=== PATIENT | female | born 1945 | race Caucasian/White ===

== ENCOUNTER → 2017-07-19 | Outpatient (CLI) | payer OTHER ==
[~2017-07-19] MED LIST: ACET-1256 PO; ATV1 PO; BLACK CHERRY PO; CALC-51 PO; CHOL2000 PO; CRAN1CAP2 PO; LORA10TA44 PO; MULTTAB58 PO; NAPR1CAP12 PO; OMEG120013 PO; RXC5 PO; VITA400C28 PO
--- NOTE | 2017-07-19 15:43 | DIAGNOSTIC IMAGING REPORT ---
LUMBAR SPINE CT CT DOSE: 1306.26 mGy.cm HISTORY: LOW BACK PAIN TECHNIQUE: Multiaxial CT images of the lumbar spine were performed and reformatted in the sagittal and coronal plane without the use of contrast. A dose lowering technique was utilized adhering to the principles of ALARA. COMPARISON: None. FINDINGS: Posterior decompression and fusion at L4-L5 with pedicle screws and rods. The hardware appears intact. There is no significant periprosthetic lucency. Severe disc space narrowing with endplate irregularity and sclerosis as well as a small amount of vacuum phenomenon at L3-L4 and L5-S1. This is likely due to long-standing degenerative change. There is 5 mm of anterolisthesis of L4 and L5. No fractures within the lumbar spine. Paraspinal soft tissues are unremarkable. Small broad-based posterior disc bulge at L2-L3. Mild central canal narrowing at L3-L4 due to the broad-based posterior disc bulge and facet hypertrophy. IMPRESSION: 1. No fractures within the lumbar spine. 2. Prior L4-5 posterior decompression and fusion. The hardware appears intact. 3. Severe disc space narrowing at L3-L4 and L5-S1. There is mild central canal narrowing at L3-L4 due to the broad-based posterior disc bulge and facet hypertrophy. Electronically signed by: Efra Packer M.D. 07/19/2017 3:41 PM Dictated Date/Time: 07/19/2017 3:33 PM
== END | disposition home or self-care (01) ==
LOC: C.CTS 15:02
PROVIDERS: ATTEND Physician Assistant
DX: M51.37 Other intervertebral disc degeneration, lumbosacral region (principal); M48.061 Spinal stenosis, lumbar region without neurogenic claudication; M51.26 Other intervertebral disc displacement, lumbar region; Z98.1 Arthrodesis status

== ENCOUNTER 2017-12-25 05:45 | Inpatient (IN) | payer OTHER ==
[2017-12-13 15:14] VITALS: BMI 31.0
--- NOTE | 2017-12-20 10:33 | DIAGNOSTIC IMAGING REPORT ---
SINGLE VIEW CHEST CLINICAL HISTORY: Preoperative examination FINDINGS: An AP, portable, upright chest radiograph is compared to study dated 09/29/2015. The cardiomediastinal silhouette is unremarkable. Chronic interstitial thickening is similar to previous. The lungs and pleural spaces are clear. No pneumothorax is seen. The skeletal structures are osteopenic. Arthritic change is noted in the shoulders. Postoperative change is seen in the left upper quadrant. Electronic device projects over the chest. IMPRESSION: No active disease in the chest. Electronically signed by: Raj Lynn M.D. 12/20/2017 10:31 AM Dictated Date/Time: 12/20/2017 10:30 AM
[2017-12-20 12:28] LABS: BASO % 0.4 %; BASO ABS # 0.02 K/uL (0-0.2); EOS ABS # 0.05 K/uL (0-0.5); HEMATOCRIT 40.4 % (37-47); HEMOGLOBIN 13.3 g/dL (12.0-16.0); IG# 0.01 K/uL (0.00-0.02); LYMPH % 24.6 %; LYMPH ABS # 1.22 K/uL (1.2-3.4); MEAN CELL VOLUME 88.4 fL (80-100); MEAN CORPUSCULAR HEMOGLOBIN 29.1 pg (25-34); MEAN CORPUSCULAR HGB CONC 32.9 g/dl (32-36); MEAN PLATELET VOLUME 8.1 fL (7.4-10.4); NEUT % 67.8 %; NEUT ABS # 3.36 K/uL (1.4-6.5); PLATELET COUNT 266 K/uL (130-400); RED CELL DISTRIBUTION WIDTH CV 13.2 % (11.5-14.5); RED CELL DISTRIBUTION WIDTH SD 41.5 fL (36.4-46.3); WHITE BLOOD COUNT 4.96 K/uL (4.8-10.8)
[2017-12-20 12:40] LABS: PTT PATIENT 27.6 SECONDS (21.0-31.0)
--- NOTE | 2017-12-20 13:56 | HISTORY & PHYSICAL EXAMINATION ---
DATE OF ADMISSION: 12/25/2017 CHIEF COMPLAINT: Right knee pain. HISTORY OF PRESENT ILLNESS: Ms. Gomez is a 71-year-old female with a 1-year history of right knee pain. The patient rates her pain an 8/10. She has pain with her daily activities. She has limited standing and walking tolerance. Pain is worse with weightbearing. The patient has had injections and Tylenol. She has also participated in the walking program without relief. She has failed conservative treatment and is scheduled for right knee replacement with Dr. Gomez. PAST MEDICAL HISTORY: AFib and history of phlebitis. She denies heart disease, diabetes or DVT. PAST SURGICAL HISTORY: Loop recorder insertion, right TKA, and liver lesion excision. SOCIAL HISTORY: The patient rarely drinks alcohol. She denies tobacco use. She lives in a 2-story home. She is and retired. FAMILY HISTORY: Negative for DVT. MEDICATIONS: Allergy relief 10 mg daily, fish oil, calcium carbonate, vitamin D3 2000 units, multivitamin, and Xarelto 20 mg. ALLERGIES: ADHESIVE. REVIEW OF SYSTEMS: See HPI. Ten other systems reviewed, all negative. PHYSICAL EXAMINATION: VITAL SIGNS: Height 5 feet 6 inches, weight 198 pounds, BMI 32. GENERAL: This is a well-developed, well-nourished female who is alert and oriented x3. Mood and affect are appropriate. HEENT: Normocephalic, atraumatic. Mucous membranes are moist and intact. NECK: Supple without lymphadenopathy. HEART: Regular rate and rhythm without murmurs, rubs or gallops. LUNGS: Clear to auscultation without wheezes or rhonchi. ABDOMEN: Soft and nontender. Bowel sounds are equal and active. EXTREMITIES: No ecchymosis, redness or warmth. She has moderate varicosities. She has no distal edema. She has neutral alignment. Range of motion is from 0-115 degrees with +1 medial laxity. She is neurovascularly intact with +5/5 strength. X-RAY EXAMINATION: AP and lateral views show joint space narrowing and osteophyte formation. IMPRESSION: Degenerative joint disease, right knee. PLAN: The patient will be admitted for a right total knee arthroplasty. We will plan on resuming her to Xarelto for DVT prophylaxis postoperatively. The patient is planning to do outpatient PT upon discharge.
[2017-12-21 05:54] LABS: HEMOGLOBIN A1C 5.2 % (4.5-5.6)
[2017-12-25] VITALS (9 sets, daily range): BP systolic 112–147; BP diastolic 64–92; PULSE 70–87; TEMP 36.2–37; O2SAT 94–100; Ht 167.6 cm; Wt 88.6 kg
[~2017-12-25] VITALS: Ht 167.6 cm; Wt 88.6 kg
[~2017-12-25 05:45] MED LIST changes: -ATV1 PO; -BLACK CHERRY PO; +LORA10CA10 PO; -LORA10TA44 PO; -NAPR1CAP12 PO; +RIVA1TAB4 PO; -RXC5 PO
[2017-12-25] MEDS ORDERED: CEFAZOLIN 2000MG IV PUSH 15 ML IV SCH (06:00)
[2017-12-25] MEDS ORDERED: FAMOTIDINE 20 MG TAB PO SCH (06:00)
[2017-12-25] MEDS ORDERED: GABAPENTIN 300 MG CAP PO SCH (06:00)
[2017-12-25] MEDS ORDERED: LACTATED RINGER'S 1000ML 1,000 ML IV SCH (06:00)
[2017-12-25] MEDS ORDERED: LACTATED RINGER'S 1000ML 500 ML IV SCH (06:00)
[2017-12-25] MEDS ORDERED: DEXAMETHASONE 4 MG TAB PO SCH (06:00)
[2017-12-25] MEDS ORDERED: CeleBREX 200 MG CAP PO SCH (06:00)
[2017-12-25] MEDS ORDERED: METOCLOPRAMIDE HCL 10 MG TAB PO SCH (06:00)
[2017-12-25] MEDS ORDERED: ACETAMINOPHEN 500 MG TAB PO SCH (06:00)
[2017-12-25] MEDS ORDERED: ROPIVACAINE 5MG/ML 30 ML 150 MG, BUPIVACAINE 0.5% MPF INJ 30 ML, EpINEphrine HCL INJ 0.... INFIL SCH ×8 (06:00)
[2017-12-25] MEDS ORDERED: ROPIVACAINE 0.5% 5 MG/ML 30 ML VIAL ONE (06:26)
[2017-12-25] MEDS ORDERED: BUPIVACAINE 0.5 % 5 MG/1 ML PF 10ML VIAL ONE (06:27)
[2017-12-25 06:29] LABS: CALCIUM 8.7 mg/dl (8.5-10.1); CREATININE 0.75 mg/dl (0.60-1.20); POTASSIUM 3.7 mmol/L (3.5-5.1)
[2017-12-25] MEDS: TRANEXAMIC ACID INJ 1,000 MG x 2 Bags IV SCH ×4 (06:30→07:42)
[2017-12-25] MEDS ORDERED: ORTHO JOINT ANESTHETIC ONE (06:56)
[2017-12-25] MEDS ORDERED: BACITRACIN 50000 UNIT VIAL ONE (06:57)
[2017-12-25] MEDS ORDERED: POVIDONE-IODINE OP SOLN 30 ML BTL ONE (06:57)
--- NOTE | 2017-12-25 06:59 | History & Physical Bridge Note ---
H&P Re-Evaluation Bridge Note: I have examined the patient, reviewed the History & Physical and in the interval since the performance of the History & Physical I have noted the following changes of clinical significance: No changes noted
[2017-12-25] MEDS ORDERED: EpHEDrine SULFATE 50MG/5ML SYR ONE (07:01)
[2017-12-25] MEDS ORDERED: FENTANYL CITRATE INJ 50 MCG/1 ML 2 ML VIAL ONE (07:01)
[2017-12-25] MEDS ORDERED: LIDOCAINE HCL 2% 2 ML VIAL (20MG/ML) ONE (07:01)
[2017-12-25] MEDS ORDERED: MIDAZOLAM HCL 1 MG/ML 2ML VIAL ONE (07:01)
[2017-12-25] MEDS ORDERED: ONDANSETRON INJ 2 MG/ML 2 ML VIAL ONE (07:01)
[2017-12-25] MEDS ORDERED: PROPOFOL IV EMULSION 10 MG/ML 20 ML VIAL IV ONE (07:01)
[2017-12-25] MEDS ORDERED: PHENYLEPHRINE 100MCG/ML 5ML SYR ONE (07:01)
[2017-12-25] MEDS ORDERED: LABETALOL HCL IV 5 MG/ML 20ML IV PRN (08:45)
[2017-12-25] MEDS ORDERED: EpHEDrine SULFATE INJ 50 MG/ML AMP IV PRN (08:45)
[2017-12-25] MEDS ORDERED: ONDANSETRON INJ 2 MG/ML 2 ML VIAL IV PRN ×2 (08:45→09:45)
[2017-12-25] MEDS ORDERED: ATROPINE SULFATE 0.1 MG/ML 5ML SYR IV PRN (08:45)
[2017-12-25] MEDS ORDERED: FENTANYL CITRATE INJ 50 MCG/1 ML 2 ML VIAL IV PRN (08:45)
[2017-12-25] MEDS ORDERED: HYDROmorphone INJ 0.5 MG/0.5 ML SYR IV PRN (08:45)
[2017-12-25] MEDS ORDERED: MEPERIDINE HCL 25 MG/ML CARP IV PRN (08:45)
--- NOTE | 2017-12-25 09:05 | [facility] Post Operative Brief Note ---
Immediate Operative Summary Operative Date Dec 25, 2017. Pre-Operative Diagnosis Right knee degenerative joint disease Post-Operative Diagnosis Right knee degenerative joint disease Procedure(s) Performed Right total knee arthroplasty,cemented Surgeon Dr. Gomez Sql Application Developer Surgeon(s) Vini Jon PA-C Estimated Blood Loss 5 cc Findings Consistent with Post-Op Diagnosis Specimens A: Right knee bone and tissue Anesthesia Type MAC Spinal Regional Complication(s) none Disposition Disposition: Recovery Room / PACU
--- NOTE | 2017-12-25 09:06 | [facility] Operative Report ---
Operative Report Operative Date Dec 25, 2017. Pre-Operative Diagnosis Right knee degenerative joint disease Post-Operative Diagnosis Right knee degenerative joint disease Procedure(s) Performed Right total knee arthroplasty,cemented utilizing Rod nephAdhereTx journey to non-block total knee arthroplasty size 5 femur 5 tibia 10 polyethylene 30 two-point oval patella Surgeon Dr. Gomez Director [employer] Surgeon(s) Vini Jon PA-C Estimated Blood Loss 5 cc Findings Patient presents with severe end-stage tricompartmental degenerative joint disease no response to conservative therapy including injections anti- inflammatories relative rest activity modifications at the time surgery is noted to have evidence of subchondral sclerotic changes marginal osteophytes bone the bone changes with exposed eburnated bone Specimens A: Right knee bone and tissue Anesthesia Type MAC Spinal Regional Complication(s) none Disposition Recovery Room / PACU Indications Patient presents with severe end-stage tricompartmental degenerative joint disease right knee unresponsive to conservative therapy presents for right total knee arthroplasty Description of Procedure After proper prepping and draping of the Right lower extremity anterior midline incision was made over the region of the extensor extensor mechanism after meticulous hemostasis was obtained and maintained in subcutaneous tissues a medial parapatellar incision was made The patella was subluxed lateralward the medial lateral gutter were cleaned from any hypertrophic synovitis and scar tissue of the distal femoral block was placed and the distal femoral osteotomy cut was made subsequently the chamfers anterior and posterior osteotomy cuts were made utilizing the 4-in-1 block the tibia was subsequently subluxed anteriorward medial and ateral meniscal remnants were excised in their entirety remnants of the anterior and posterior cruciate ligaments were excised in their entirety excellent exposure of the proximal tibia was obtained the tibial osteotomy guide was placed on the proximal tibial osteotomy cut was made once again the knee was irrigated with copious amounts of sterile saline solution the patella was subsequently everted lateralward thickened scar tissue around the patella was removed the patella was subsequently cut utilizing a freehand technique and was drilled prepared for final preparation and placement of patella socially flexion-extension gaps were checked and the equal and symmetric trials were placed to the appropriate femoral and tibial trials with poly-spacer being placed for equal flexion and extension gaps and full range of motion including extension to 0 and flexion to 140 the trial components after having been taken to recovery range of motion was subsequently removed meticulous hemostasis was obtained and maintained subsequently a knee block injection of joint cocktail including ropivacaine 0.5% 150 mg. Bupivacaine 0.5 % epinephrine 1-200,030 mL's toradol 30 mg dexamethasone 4 mg ketamine 10 mg clonidine 100 micrograms normal saline solution 30 mg was infiltrated into the soft tissues of the posterior knee medial lateral gutters and periosteal synovium special attention was paid to protect neurovascular structures at all times subsequently trial components having been removed the knee was irrigated with sterile saline solution. debris was removed the proximal tibia was subsequently prepared and was made ready for the placement of the tibial component tibial component was also cemented and tamped into position the femoral component was subsequently placed and cemented in the position the patellar component was subsequently cemented in position because hemostasis once again obtained and maintained wound having been thoroughly irrigated with debridement and debridement lavage was performed as well as a medial parapatellar incision closed with #1 Vicryl in interrupted fashion subcutaneous was closed with #2 Vicryl skin was closed with skin clips. PA-C was necessary for prepping and drapping as well as wound closure of deep fascia Sub cutaneous tissue and skin and was necessary for the case. A sterile compressive dressing was placed patient was taken to recovery in stable condition of report dictated by Jason I attest to the content of the Intraoperative Record and any orders documented therein. Any exceptions are noted below. I attest to the content of the Intraoperative Record and any orders documented therein. Any exceptions are noted below.
[2017-12-25] MEDS ORDERED: MoRPHine SULFATE 2 MG/ML CARP IV PRN (09:45)
[2017-12-25] MEDS ORDERED: TRAMADOL HCL 50 MG TAB PO PRN (09:45)
[2017-12-25] MEDS ORDERED: MAGNESIUM HYDROXIDE SUSP 30 ML UDC PO PRN (09:45)
[2017-12-25] MEDS ORDERED: BISACODYL 10 MG SUPP PR PRN (09:45)
[2017-12-25] MEDS ORDERED: ALUMINUM/MAGNESIUM/SIMETH (MAALOX MAX) 30 ML UDC PO PRN (09:45)
--- NOTE | 2017-12-25 10:18 | DIAGNOSTIC IMAGING REPORT ---
RIGHT KNEE 2 VIEWS History: Right total knee arthroplasty. Degenerative arthritis. Postop. FINDINGS: The patient is status post a right total knee arthroplasty. The hardware is intact. No fracture or dislocation. Skin ashley and surgical drains are in place. IMPRESSION: Right total knee arthroplasty. No evidence for hardware complication. Electronically signed by: Efra Packer M.D. 12/25/2017 10:17 AM Dictated Date/Time: 12/25/2017 10:17 AM
[2017-12-25] MEDS: D5W AND 1/2NSS + 20MEQ KCL 1,000 ML IV SCH ×2 (11:34→21:29)
--- NOTE | 2017-12-25 11:44 | Anesthesiology Progress Note ---
Anesthesia Post Op Note Date & Time Dec 25, 2017 at 11:43 Vital Signs Pain Intensity: 0.0 Vital Signs Past 12 Hours Date Time Temp Pulse Resp B/P (MAP) Pulse Ox O2 Delivery O2 Flow Rate FiO2 12/25/17 11:12 36.5 71 18 126/84 (98) 100 Nasal Cannula 2.0 12/25/17 10:45 Nasal Cannula 2.0 12/25/17 10:45 100 Nasal Cannula 2.0 12/25/17 10:45 36.4 70 16 132/90 (104) 100 Nasal Cannula 2.0 12/25/17 10:30 70 19 129/77 100 Nasal Cannula 2 12/25/17 10:20 36.6 70 16 133/71 100 Oxymask 2 12/25/17 10:10 72 19 135/80 100 Oxymask 2 12/25/17 10:00 68 19 139/72 100 Oxymask 2 12/25/17 09:50 72 17 133/71 100 Oxymask 6 12/25/17 09:40 36.8 78 23 127/66 100 Oxymask 10 12/25/17 06:05 36.4 81 20 147/84 98 Room Air Notes Mental Status: alert / awake / arousable, participated in evaluation Pt Amnestic to Procedure: Yes Nausea / Vomiting: adequately controlled Pain: adequately controlled Airway Patency, RR, SpO2: stable & adequate BP & HR: stable & adequate Hydration State: stable & adequate Neuraxial Anesthesia: was administered, sensory block is resolving Anesthetic Complications: no major complications apparent
[2017-12-25] MEDS: FERROUS GLUCONATE 324 MG TAB PO SCH ×2 (12:34→17:47)
[2017-12-25] MEDS: ACETAMINOPHEN 500 MG TAB PO SCH ×2 (13:36→21:31)
[2017-12-25] MEDS: CEFAZOLIN IV 2,000 MG in SYRINGE 0 ML IV SCH (16:12)
[2017-12-25] MEDS: CeleBREX 200 MG CAP PO SCH (20:45)
[2017-12-25] MEDS: DOCUSATE SODIUM 100 MG CAP PO SCH (20:45)
[2017-12-25] MEDS: SENNA 8.6 MG TAB PO SCH (20:45)
[2017-12-26] MEDS: CEFAZOLIN IV 2,000 MG in SYRINGE 0 ML IV SCH (00:20)
[2017-12-26 03:00] VITALS: BP 126/75; PULSE 86; TEMP 36.6; O2SAT 97
[2017-12-26] MEDS: ACETAMINOPHEN 500 MG TAB PO SCH ×3 (05:45→22:04)
[2017-12-26] MEDS: D5W AND 1/2NSS + 20MEQ KCL 1,000 ML IV SCH (05:46)
[2017-12-26] MEDS ORDERED: BACITRACIN 50000 UNIT VIAL ONE (06:48)
[2017-12-26] MEDS ORDERED: POVIDONE-IODINE OP SOLN 30 ML BTL ONE (06:48)
[2017-12-26 06:53] LABS: HEMATOCRIT 32.3 % (37-47); HEMOGLOBIN 10.9 g/dL (12.0-16.0); MEAN CELL VOLUME 87.5 fL (80-100); MEAN CORPUSCULAR HEMOGLOBIN 29.5 pg (25-34); MEAN CORPUSCULAR HGB CONC 33.7 g/dl (32-36); PLATELET COUNT 191 K/uL (130-400); RED CELL DISTRIBUTION WIDTH CV 13.5 % (11.5-14.5); RED CELL DISTRIBUTION WIDTH SD 42.8 fL (36.4-46.3); WHITE BLOOD COUNT 9.54 K/uL (4.8-10.8)
[2017-12-26 07:00] VITALS: BP 121/69; PULSE 67; TEMP 36.6; O2SAT 99
[2017-12-26 07:28] LABS: CALCIUM 8.4 mg/dl (8.5-10.1); CREATININE 0.76 mg/dl (0.60-1.20); POTASSIUM 4.4 mmol/L (3.5-5.1)
[2017-12-26] MEDS: CeleBREX 200 MG CAP PO SCH ×2 (08:32→20:53)
[2017-12-26] MEDS: CHOLECALCIFEROL 1000 INTER.UNIT TAB PO SCH (08:32)
[2017-12-26] MEDS: MULTIVITAMIN TAB PO SCH (08:32)
[2017-12-26] MEDS: LORATADINE 10 MG TAB PO SCH (08:32)
[2017-12-26] MEDS: FERROUS GLUCONATE 324 MG TAB PO SCH ×3 (08:32→18:06)
[2017-12-26] MEDS: DOCUSATE SODIUM 100 MG CAP PO SCH ×2 (08:32→20:53)
[2017-12-26] MEDS ORDERED: LORATADINE 10 MG TAB PO SCH (09:00)
[2017-12-26] MEDS ORDERED: MULTIVITAMIN TAB PO SCH (09:00)
--- NOTE | 2017-12-26 09:03 | Orthopedic Progress Note ---
Orthopedic Progress Note Date of Service Dec 26, 2017. Subjective Post OP Day: 1 (Right total knee arthroplasty) Reports: feeling well, pain controlled w PO medications, Denies: complaints, chest pain, SOB, nausea / vomiting, light headedness, calf pain Objective calves soft nontender, N/V intact, capillary refill less than 2 sec., dressing C /D/I, A&O x3, toes mobile, hemovac drainage (375cc/ 8 hour) Date Time Temp Pulse Resp B/P (MAP) Pulse Ox O2 Delivery O2 Flow Rate FiO2 12/26/17 07:15 Room Air 12/26/17 07:00 36.6 67 18 121/69 (86) 99 Room Air 12/26/17 03:00 36.6 86 16 126/75 (92) 97 Room Air 12/25/17 23:45 Room Air 12/25/17 23:06 36.7 77 17 112/68 (83) 97 Room Air 12/25/17 20:04 36.3 87 17 130/73 (92) 95 Room Air 12/25/17 16:00 Room Air 12/25/17 15:36 37.0 79 17 119/64 (82) 94 Room Air 12/25/17 13:44 36.2 80 16 128/76 (93) 96 Room Air 12/25/17 13:18 87 18 134/92 (106) 99 Nasal Cannula 2.0 12/25/17 11:51 70 18 122/71 (88) 100 Nasal Cannula 2.0 12/25/17 11:12 36.5 71 18 126/84 (98) 100 Nasal Cannula 2.0 12/25/17 10:45 Nasal Cannula 2.0 12/25/17 10:45 100 Nasal Cannula 2.0 12/25/17 10:45 36.4 70 16 132/90 (104) 100 Nasal Cannula 2.0 12/25/17 10:30 70 19 129/77 100 Nasal Cannula 2 12/25/17 10:20 36.6 70 16 133/71 100 Oxymask 2 12/25/17 10:10 72 19 135/80 100 Oxymask 2 12/25/17 10:00 68 19 139/72 100 Oxymask 2 12/25/17 09:50 72 17 133/71 100 Oxymask 6 12/25/17 09:40 36.8 78 23 127/66 100 Oxymask 10 Laboratory Results 24 Hours: Test 12/26/17 06:40 Hematocrit 32.3 % Hemoglobin 10.9 g/dL Assessment & Plan Assessment: POD #1 s/p Right total knee arthroplasty dvt proph with irene/scd/Xarelto plan for dc home with OPPT when stable, likely PT/OT Past Medical History AFib history of phlebitis Discharge Planning Discharge Planning: home with oppt DVT Prophylaxis: TEDs, SCDs, ASA
--- NOTE | 2017-12-26 09:07 | Discharge Instructions ---
Discharge Instructions Date of Service Dec 26, 2017. Admission Reason for Admission: Right Knee Osteoarthritis Discharge Discharge Diagnosis / Problem: right total knee replacement Discharge Goals Goal(s): Decrease discomfort, Improve function, Increase independence Activity Recommendations Activity Limitations: as noted below Weightbearing Status: Right weightbearing (as tolerated) . Instructions / Follow-Up Instructions / Follow-Up ACTIVITY RECOMMENDATIONS: SELF CARE INSTRUCTIONS AFTER TOTAL KNEE REPLACEMENT A. You may need to continue a physical therapy program after discharge from the hospital. There are several options available to you. Your doctor will assist you in selecting the best one for you. 1. An out-patient facility 2 to 3 times a week for therapy or home therapy. 2. Continue working on all exercises taught to you in the hospital. Your goals should be to increase bending of your knee to 90 degrees and beyond and to fully straighten your knee. B. You may progress at your own pace from walking with a walker or crutches to a cane; then to no assistive devices. C. Make walking a part of your daily routine. Be up as much as comfortable with rest periods throughout the day. Rest with leg elevation is very important. Use the ice wrap frequently for the first 3-4 weeks. D. There are no restrictions on activities. You may ride in a car, shop, participate in orthotic technician and all social activities. E. Wear the long elastic stockings (ANA hose) 20 hours a day for 2 weeks after surgery. They can be removed several times a day for laundering and for a bath. F. You may shower, no tub baths until cleared by your doctor. SPECIAL CARE INSTRUCTIONS: VERY IMPORTANT TO READ AND REVIEW A. There are a few signs you need to watch for after you are home. Call [facility] if you notice any of the followin. Increased severe knee pain. Some pain is expected especially when you exercise. 2. Increased swelling in your leg or knee; pain or swelling of the calf muscle in either lower leg. 3. Any fluid drainage from the incision. 4. Shortness of breath or chest pain. B. Please call [facility] at if you have any concerns or questions about your operation or recovery. The doctor or his nurse will return your call promptly. C. You must take antibiotics before dental work, bladder, bowel or other surgery. Your doctor will provide you with a permanent care to carry describing this precaution. IMPORTANT: * REMEMBER TO TAKE ASPIRIN, 81 MG, TWICE DAILY FOR 4 WEEKS UNLESS OTHERWISE DIRECTED. THIS IS YOUR BLOOD THINNER. * HIGH RISK PATIENTS MAY BE PRESCRIBED A STRONGER BLOOD THINNER. THIS WILL BE PROVIDED AT DISCHARGE. * CALL IF INCREASED PAIN, REDNESS, DRAINAGE OR FEVER GREATER THAT 101. * WEAR ANA HOSE 20 HOURS PER DAY FOR 2 WEEKS. * YOU MAY HAVE A LARGE BAND-AID LIKE DRESSING (SILVERON). THIS WILL REMAIN ON YOUR INCISION FOR 7 DAYS, THEN CAN BE REMOVED. IF INCISION IS LEAKING THROUGH DRESSING, CALL THE OFFICE . FOLLOW UP VISIT: If appointment is not already scheduled: Please call [facility] to make a follow-up appointment for 2 weeks after your surgery at . Current Hospital Diet Patient's current hospital diet: Regular Diet Discharge Diet Recommended Diet: Regular Diet Procedures Procedures Performed: Right total knee arthroplasty,cemented utilizing [employer] journey to non-block total knee arthroplasty size 5 femur 5 tibia 10 polyethylene 30 two-point oval patella Pending Studies Studies pending at discharge: no Laboratory Results Hemoglobin A1c Test 12/20/17 09:55 Range/Units Estimated Average Glucose 103 mg/dl Hemoglobin A1c 5.2 4.5-5.6 % Medical Emergencies . Who to Call and When: Medical Emergencies: If at any time you feel your situation is an emergency, please call 911 immediately. . Non-Emergent Contact Non-Emergency issues call your: Primary Care Provider, Surgeon . "Provider Documentation" section prepared by Vega Barber. . [place] Drug Monitoring Program Search Results: patient reviewed within database, no issues identified
[2017-12-26 11:01] VITALS: BP 117/72; PULSE 70; TEMP 37.2; O2SAT 100
[2017-12-26 15:10] VITALS: BP 123/74; PULSE 68; TEMP 36.5; O2SAT 99
[2017-12-26 16:00] VITALS: O2SAT 99
[2017-12-26] MEDS ORDERED: RIVAROXABAN 10 MG TAB PO SCH (17:15)
[2017-12-26] MEDS: OXYCODONE HCL IR 5 MG TAB (IMMEDIATE RELEASE) PO PRN (18:19)
[2017-12-26] MEDS: SENNA 8.6 MG TAB PO SCH (20:53)
[2017-12-26 23:15] VITALS: BP 111/70; PULSE 70; TEMP 36.3; O2SAT 98
[2017-12-27] MEDS: ACETAMINOPHEN 500 MG TAB PO SCH ×2 (06:15→13:29)
--- NOTE | 2017-12-27 06:57 | Orthopedic Progress Note ---
Orthopedic Progress Note Date of Service Dec 27, 2017. Subjective Post OP Day: 2 Reports: feeling well, pain controlled w PO medications, Denies: complaints, chest pain, SOB, nausea / vomiting, light headedness, calf pain Objective calves soft nontender, N/V intact, capillary refill less than 2 sec., dressing C /D/I, A&O x3, toes mobile Date Time Temp Pulse Resp B/P (MAP) Pulse Ox O2 Delivery O2 Flow Rate FiO2 12/26/17 23:45 Room Air 12/26/17 23:15 36.3 70 16 111/70 (84) 98 Room Air 12/26/17 16:00 99 Room Air 12/26/17 15:10 36.5 68 18 123/74 (90) 99 Room Air 12/26/17 11:01 37.2 70 18 117/72 (87) 100 Room Air 12/26/17 07:15 Room Air 12/26/17 07:00 36.6 67 18 121/69 (86) 99 Room Air Assessment & Plan Assessment: POD #2 s/p Right total knee arthroplasty dvt proph with irene/scd/Xarelto plan for dc home with OPPT when stable, after PT today PT/OT Past Medical History AFib history of phlebitis Discharge Planning Discharge Planning: home with oppt DVT Prophylaxis: TEDs, SCDs, ASA
[2017-12-27] MEDS ORDERED: CLC100 PO (06:59)
[2017-12-27] MEDS ORDERED: ACET-24 PO (06:59)
[2017-12-27] MEDS ORDERED: ONDA-170 PO (06:59)
[2017-12-27] MEDS ORDERED: CLB200 PO (06:59)
[2017-12-27] MEDS ORDERED: RXC5 PO (06:59)
[2017-12-27 07:11] VITALS: BP 112/74; PULSE 72; TEMP 36.4; O2SAT 97
[2017-12-27] MEDS: CHOLECALCIFEROL 1000 INTER.UNIT TAB PO SCH (08:18)
[2017-12-27] MEDS: CeleBREX 200 MG CAP PO SCH (08:18)
[2017-12-27] MEDS: LORATADINE 10 MG TAB PO SCH (08:19)
[2017-12-27] MEDS: MULTIVITAMIN TAB PO SCH (08:19)
[2017-12-27] MEDS: FERROUS GLUCONATE 324 MG TAB PO SCH ×2 (08:19→13:28)
[2017-12-27] MEDS: DOCUSATE SODIUM 100 MG CAP PO SCH (08:19)
[2017-12-27] MEDS: OXYCODONE HCL IR 5 MG TAB (IMMEDIATE RELEASE) PO PRN (08:23)
[2017-12-27 10:37] VITALS: TEMP 36.4
[2017-12-27 13:33] VITALS: BP 119/75; PULSE 77; O2SAT 97
== END 2017-12-27 14:45 | disposition home or self-care (01) | DRG 470 ==
LOC: C.ACU 05:45 → C.3E 06:45 → ENRESERV 10:22
PROVIDERS: ADMIT Orthopaedic Surgery; ATTEND Orthopaedic Surgery
PROC: 0SRC0J9 Replacement of Right Knee Joint with Synthetic Substitute, Cemented, Open Approach (ICD-10-PCS; principal; 2017-12-25 07:45)
DX: M17.11 Unilateral primary osteoarthritis, right knee (principal); I48.91 Unspecified atrial fibrillation; Z79.899 Other long term (current) drug therapy; Z79.01 Long term (current) use of anticoagulants; Z86.79 Personal history of other diseases of the circulatory system

== ENCOUNTER 2021-08-08 08:41 | Observation (INO) ==
--- NOTE | 2021-07-01 11:36 | PAT Medication Instructions ---
Medication Instructions Date of Service July 01, 2021 Home Medications anastrozole 1 mg tablet 1 mg PO QAM calcium 600 mg capsule 1,200 mg PO DAILY cranberry 500 mg capsule 500 mg PO DAILY loratadine 10 mg tablet (Claritin) 10 mg PO DAILY multivitamin 1 tab PO DAILY omega-3 fatty acids 1,000 mg PO DAILY rivaroxaban 20 mg tablet (Xarelto) 20 mg PO QAM 06/30/21 [History Confirmed 06/30/21] Continue as directed anastrozole 1 mg tablet 1 mg PO QAM (unless surgeon directed otherwise) ASK your prescriber and surgeon rivaroxaban 20 mg tablet (Xarelto) 20 mg PO QAM STOP taking 2 weeks before surgery omega-3 fatty acids 1,000 mg PO DAILY cranberry 500 mg capsule 500 mg PO DAILY DO NOT take the morning of surgery calcium 600 mg capsule 1,200 mg PO DAILY loratadine 10 mg tablet (Claritin) 10 mg PO DAILY multivitamin 1 tab PO DAILY OTHERWISE NOTHING TO EAT OR DRINK AFTER MIDNIGHT Other Notes If you have any questions please call us at [phone] or [phone] or [phone] or [phone]
--- NOTE | 2021-07-04 13:42 | Anesthesiology Consultation ---
Date of Service July 04, 2021 Assessment & Plan (1) Encounter for pre-operative examination: Chart Review Chart Review: Acceptable Risk for Surgery (pending PCP note if available and preop Covid testing results ) and Patient seen in Pre Admission Testing -Will attempt to obtain most recent PCP note (pt scheduled 07/05/21) Per PAT appt on 06/29/21, patient denies any recent travel or large group activities. No known Covid positive contacts or Covid related symptoms. No known Covid infection in the past 90 days. Pt is vaccinated for Covid.. Preop Covid testing recommended 07/14/21 = will await results. Educated on importance of self quarantining, social distancing and wearing mask in public for the patient one week prior to surgery and after Covid testing done Teaching & Discussion Pre-Anesthesia Teaching/Discussion Notes: Instructed NPO after midnight before surgery,except medications with 15 cc of water. Medication instructions provided according to the [facility] guidelines. History Surgery Operation Date: 07/18/21 11:35 Proposed Procedures p L2-L4 Decompression, L3-L4 Fusion, Possible L2-L4, Spinal Cord Monitoring - Reid Lee DO s L4-L5 Hardware Removal - Reid Lee DO Height/Weight Height: 5 ft 5.5 in Weight: 97.6 kg Allergies Allergy/AdvReac Type Severity Reaction Status Date / Time adhesive Allergy Mild RASH Verified 06/30/21 14:17 No Known Drug Allergies Allergy Unknown NONE Verified 06/30/21 14:17 Medications Home Medications Medication Instructions Recorded Confirmed Last Taken anastrozole 1 mg tablet 1 mg PO QAM 06/30/21 06/30/21 Unknown calcium 600 mg capsule 1,200 mg PO DAILY 06/30/21 06/30/21 Unknown cranberry 500 mg capsule 500 mg PO DAILY 06/30/21 06/30/21 Unknown loratadine 10 mg tablet (Claritin) 10 mg PO DAILY 06/30/21 06/30/21 Unknown multivitamin 1 tab PO DAILY 06/30/21 06/30/21 Unknown omega-3 fatty acids 1,000 mg PO DAILY 06/30/21 06/30/21 Unknown rivaroxaban 20 mg tablet (Xarelto) 20 mg PO QAM 06/30/21 06/30/21 Unknown Past Medical History Medical History Arthritis Degenerative disc disease History of atrial fibrillation S/p ablation On Xarelto - stable Follows only with PCP Hx of breast cancer RT (S/P LUMPECTOMY WITH RADIATION) 2019 Does have right UE arm restriction Exercise / Class Metabolic Activity III < 4 Walking/Shop/Light housework (one flight of stairs - minimal SOB, no chest pain) Past Family History Family History Other No family history of adverse response to anesthesia Past Surgical History Surgical History (Updated 07/04/21 @ 14:26 by Lore Vick PA-C) H/O cardiac radiofrequency ablation ? 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 Past Anesthesia History No Hx of Anesthesia Complications and No Family Hx of Anesthesia Complications History of PONV No Hx of PONV and No Hx of Motion Sickness Social History Smoking Status: Never smoker Hx Alcohol Use: Yes Alcohol type: wine alcohol intake frequency: holidays/special occasions only substance use type: does not use Review of Systems Hx of snoring - no witnessed apnea- no hx of sleep study Hx of blood transfusion 15-18 years ago- secondary to 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 No hx of seizures, stroke, MA. No hx of blood clots. Physical Exam Vital Signs VITALS BP 130/76 P 78 TEMP 98.0 SP02 99% RESP 16 Constitutional no acute distress ENMT Mouth: no TMJ clicking Thyromental Distance: < 3.5 Finger Breadths (2.5) Mallampati Class: III Full upper denture Partial bottom denture Neck + limited neck extension (significant ) Respiratory normal respiratory effort; no respiratory distress Auscultation: lungs clear to auscultation bilaterally; no wheezes Cardiovascular Rate/Rhythm: regular rate and regular rhythm Heart Sounds: no murmur Vessels: no carotid bruit Musculoskeletal Spine: no pain with cervical ROM Extremities: extremities normal to inspection Psychiatric Orientation: alert Lab Results Anesthesia Preop Results Results Anesthesia Widget: WBC 5.76 K/uL (4.8-10.8) 07/04/21 Hgb 13.0 g/dL (12.0-16.0) 07/04/21 Hct 39.0 % (37-47) 07/04/21 Plt 255 K/uL (130-400) 07/04/21 Na 139 mmol/L (136-145) 07/04/21 K 4.0 mmol/L (3.5-5.1) 07/04/21 Cl 105 mmol/L (98-107) 07/04/21 CO2 30 mmol/L (21-32) 07/04/21 BUN 13 mg/dl (7-18) 07/04/21 Creat 0.77 mg/dl (0.6-1.2) 07/04/21 Glucose Level 100 mg/dl (70-99) H 07/04/21 PT 11.1 Seconds (9.0-12.0) 07/04/21 PTT 34.5 Seconds (21.0-31.0) H 07/04/21 INR 1.1 (0.9-1.1) 07/04/21 Urine Color Yellow 07/04/21 Urine Appearance Clear (Clear) 07/04/21 Urine pH 7.0 (4.5-7.5) 07/04/21 Urine Specific [place] 1.007 (1.000-1.030) 07/04/21 Urine Protein Negative (Negative) 07/04/21 Urine Glucose (UA) Negative (Negative) 07/04/21 Urine Ketones Negative (Negative) 07/04/21 Urine Blood Negative (Negative) 07/04/21 Urine Nitrite Negative (Negative) 07/04/21 Urine Bilirubin Negative (Negative) 07/04/21 Urine Urobilinogen Negative (Negative) 07/04/21 Urine Leukocyte Esterase 1+ (Negative) H 07/04/21 Urine WBC (Auto) 10-30 /hpf (0-5) H 07/04/21 Urine RBC (Auto) 0-4 /hpf (0-4) 07/04/21 Urine Hyaline Casts (Auto) 0 /lpf (0-5) 07/04/21 Urine Epithelial Cells (Auto) 5-10 /lpf (0-5) H 07/04/21 Urine Bacteria (Auto) 2+ (Negative) H 07/04/21 Blood Type A Negative 07/04/21 Antibody Screen NEGATIVE 07/04/21 Lab Comments: Surgeon's office informed of UA results Testing Electrocardiogram Date: 07/04/21 Findings: + NSR @ (76bpm) Normal EKG per cardio. Chest X-Ray Date: 07/04/21 Findings: + NAD Chronic interstitial thickening is similar to previous. There is mild elevation of the right hemidiaphragm with bibasilar atelectasis. No airspace consolidation or pleural effusion is identified. There is no pneumothorax. An indeterminant round radiodensity is again seen in the left upper quadrant.
[~2021-08-08 08:41] MED LIST changes: -ACET-1256 PO; +ACETAMINOPHEN 500 MG TAB PO SCH; -CALC-51 PO; -CHOL2000 PO; -CRAN1CAP2 PO; +CeleBREX 200 MG CAP PO SCH; +GABAPENTIN 300 MG CAP PO SCH; -LORA10CA10 PO; +LR 15ML/HR IV SCH; -MULTTAB58 PO; -OMEG120013 PO; -RIVA1TAB4 PO; -VITA400C28 PO; +ceFAZolin 2000MG 2,000 MG/15 ML SYR IV SCH
[2021-08-08] MEDS ORDERED: PHENYLEPHRINE 100MCG/ML 5ML SYR IV PRN (09:51)
[2021-08-08] MEDS ORDERED: ePHEDrine sulfate 50 MG/ML AMP IV PRN (09:51)
[2021-08-08] MEDS ORDERED: ATROPINE SULFATE 0.1 MG/ML 10ML SYR IV PRN (09:51)
[2021-08-08] MEDS ORDERED: HYDROmorphone INJ 1 MG/ML SYRINGE IV PRN ×2 (09:51→14:28)
[2021-08-08] MEDS ORDERED: LABETALOL HCL IV 5 MG/ML 20ML IV PRN (09:51)
[2021-08-08] MEDS ORDERED: MEPERIDINE HCL 25 MG/ML CARP/VIAL IV PRN (09:51)
[2021-08-08] MEDS ORDERED: ONDANSETRON INJ 2 MG/ML 2 ML VIAL IV PRN ×2 (09:51→14:28)
--- NOTE | 2021-08-08 10:33 | History & Physical Bridge Note ---
Date of Service August 08, 2021 History & Physical Bridge Note I have examined the patient, reviewed the History & Physical and in the interval since the performance of the History & Physical I have noted the following changes of clinical significance: no changes noted
--- NOTE | 2021-08-08 10:35 | History & Physical Report ---
Date of Service August 08, 2021 Assessment & Plan (1) Lumbar stenosis with neurogenic claudication: Plan: L2-L4 decompression, L3-L4 fusion possible L2-L4, L4-L5 hardware removal History of Present Illness Chief Complaint: Back and bilateral leg pain Primary Care Provider: Sulma Alvarado MD This is a 75 old female who presents with current persistent back and leg pain. Failing course of nonoperative care she is here for surgical invention. Allergies Allergy/AdvReac Type Severity Reaction Status Date / Time adhesive Allergy Mild RASH Verified 08/08/21 09:04 No Known Drug Allergies Allergy Unknown NONE Verified 08/08/21 09:04 Home Medications Medication Instructions Recorded Confirmed Type anastrozole 1 mg tablet 1 mg PO QAM 06/30/21 08/08/21 History calcium 600 mg capsule 1,200 mg PO DAILY 06/30/21 08/08/21 History cranberry 500 mg capsule 500 mg PO DAILY 06/30/21 08/08/21 History loratadine 10 mg tablet (Claritin) 10 mg PO DAILY 06/30/21 08/08/21 History multivitamin 1 tab PO DAILY 06/30/21 08/08/21 History omega-3 fatty acids 1,000 mg PO DAILY 06/30/21 08/08/21 History rivaroxaban 20 mg tablet (Xarelto) 20 mg PO QAM 06/30/21 08/08/21 History Past Med/Surg History Medical History (Updated 08/08/21 @ 08:40 by Efra Poole MD) Arthritis Degenerative disc disease History of atrial fibrillation S/p ablation On Xarelto - stable Follows only with PCP Hx of breast cancer RT (S/P LUMPECTOMY WITH RADIATION) 2019 Does have right UE arm restriction Obesity Surgical History (Updated 07/04/21 @ 14:26 by Lore Vick PA-C) H/O cardiac radiofrequency ablation ? 10 YEARS AGO FOR A-FIB ([facility])>NO CARDS>REASON FOR XARELTO History of appendectomy History of cholecystectomy History of colonoscopy History of hysterectomy History of lumbar surgery History of tooth extraction History of total knee replacement RT/LEFT Hx of lumpectomy RT Liver mass REMOVED "BLOOD FILLED/BENIGN"- PRESUMED HEMANGIOMA Family History Other No family history of adverse response to anesthesia Social History Smoking Status: Never smoker Second Hand Exposure: Yes (IN THE PAST); Hx Alcohol Use: Yes Alcohol type: wine Preferred Language: Upper Sorbian Administrative Secretary Required: No Beliefs That Will Affect Care: None Current Living Situation: Spouse Feels Safe at Home: Yes Safety Concerns: Feels Safe At This Time Assistive Devices: Denture - Upper, Denture - Lower and Glasses Physical Exam Physical Exam: Patient is alert and oriented Heart regular rate and rhythm Lungs clear Results & Data ([facility]) Vital Signs (Past 12 Hours) Vital Signs Temp Pulse Resp BP Pulse Ox 08/08/21 09:10 36.5 C 83 20 149/69 H 98
[2021-08-08] MEDS ORDERED: BUPIVACAINE 0.5 % 5 MG/1 ML MPF 30ML VIAL ONE (10:56)
[2021-08-08] MEDS ORDERED: EPINEPHrine INJ 1 MG/ML AMP ONE (10:56)
[2021-08-08] MEDS ORDERED: LIDOCAINE 2% 2 ML VIAL/AMP(20MG/ML) INFIL ONE (11:06)
[2021-08-08] MEDS ORDERED: ONDANSETRON INJ 2 MG/ML 2 ML VIAL ONE (11:06)
[2021-08-08] MEDS ORDERED: ROCURONIUM BROMIDE 10 MG/ML 5 ML VIAL IV ONE (11:06)
[2021-08-08] MEDS ORDERED: DEXAMETHASONE SOD INJ 4 MG/ML VIAL ONE (11:06)
[2021-08-08] MEDS ORDERED: PROPOFOL IV EMULSION 10 MG/ML 20 ML VIAL IV ONE (11:06)
[2021-08-08] MEDS ORDERED: fentaNYL citrate 100 MCG/2 ML VIAL ONE (11:07)
[2021-08-08] MEDS ORDERED: NEOSTIGMINE METHYLSULFATE 1 MG/ML 10ML VIAL ONE (13:03)
[2021-08-08] MEDS ORDERED: GLYCOPYRROLATE 0.2 MG/ML VIAL ONE (13:03)
[2021-08-08] MEDS ORDERED: FLOSEAL HEMOSTATIC MATRIX 10ML TOP ONE (13:16)
--- NOTE | 2021-08-08 13:17 | Operative Report ---
Post Operative Report Pre & Post Diagnosis Operation Date: 07/18/21 11:35 <No data on this case meets the specified criteria> Operation Date: 08/08/21 10:35 Pre-Op Diagnosis: Lumbar spinal stenosis with radiculopathy Post-Op Diagnosis: Same I identified the patient and participated in the time-out.: Yes Procedure Operation Date: 07/18/21 11:35 <No data on this case meets the specified criteria> Operation Date: 08/08/21 10:35 Actual Procedures 1. Removal of posterior instrumentation L4-5. #2 exploration of fusion L4-5. #3 lumbar decompression bilateral medial facetectomies and foraminotomies L2-3 L3-L4. #4 posterior spinal fusion L2-L4. #5 placement posterior instrumentation L2-L5. #6 interbody fusion L3-L4. #7 placement peek cage 10 x 22 mm at L3-L4. #8 placement of locally harvested morselized autograft in the posterior gutters. Midline placement infuse collagen sponge and master graft in the posterior lateral gutters and I factor interbody space. Surgeon Reid Lee, DO Stair Builder Sharifa Jones Estimated Blood Loss 300 Findings See Below The patient is 5 foot 5 inches tall weighing 97 kg with a BMI in excess of 35. The patient's body was did contribute to significant technical difficulty requiring her deepest retractors longus instruments in order to perform her procedure. Is at least 50% increase to the operative time. Specimens None Indications this is a 75-year-old female who presents above-mentioned diagnosis after failing stents course of nonoperative care is here for the above-mentioned procedure. Description of Procedure Patient was met with identified informed consent obtained. Patient was then taken to the operative suite underwent a patient placed in a prone position the [facility] Maximus frame. All bony prominences well-padded eyes inspected to ensure no external pressure placed upon the. This point lumbar spine was prepped and draped in a sterile fashion. Sharp dissection with the assistance of Bovie cautery was performed down to and exposing the lamina and transverse processes of L2-L3 and the instrumentation L4-L5 bilaterally. I then proceeded to move the hardware at L4-5 bilaterally explore the fusion mass noting it to be mature and intact. Informed complete laminectomy of L3 and L2 including bilateral medial facetectomies and foraminotomies addressing severe spinal stenosis. Pedicle screws then placed in L2 L3-L4-L5 bilaterally with assistance of fluoroscopy appropriate sized cody placed. I did elect to remove the L3 pedicle screw on the left as the pedicle did appear to split with placement of the screw. By way of a transforaminal approach on right a complete discectomy of L3-L4 was performed endplates curetted to subcortical bleeding bone and a 10 x 22 mm peek cage filled I factor tapped in position. The rods were then locked in final position bilaterally. The transverse processes of L 2 L3-L4 were then burred to subcortical bleeding bone. Infuse collagen sponge master graft local autograft was placed in the posterior gutters. 15 round CLAUDIA drain inserted. The incision was then closed with 1 Vicryl in the fascia 2-0 Vicryl subcutaneously and 4 Monocryl for final skin closure. Steri-Strip sterile dressing placed. Patient waken taken to PACU stable condition. Please note spinal cord monitoring was utilized at the procedure no changes noted. Lastly Sharifa Jones was present at the entire surgeon while the patient positioning complex portions of the surgery and final skin closure. I attest to the content of the Intraoperative Record and any orders documented therein. Any exceptions are noted below.
--- NOTE | 2021-08-08 13:39 | Fluoroscopy Report ---
FL lumbar spine 2-3V CLINICAL HISTORY: L2-L4 DECOMPRESSION/ L3-L4 FUSION/ L2-L5 HW REMOVAL COMPARISON STUDY: Lumbar spine MRI April 01, 2021. FLUOROSCOPY TIME: 17]. FLUOROSCOPIC IMAGES: 2 FINDINGS: Fluoroscopy was provided during hardware removal. Previous L4-L5 discectomy is noted. Inter bon L3-L4 discectomy with interbody spacer placement as noted. There are bilateral pedicle screws at the L2, L4 and L5 levels. There is a right-sided screw at the L3 level. There is no fracture. No unex pected radiopaque foreign bodies are present. Multilevel posterior decompression is noted. IMPRESSION: Fluoroscopy provided during revision lumbar spine surgery, as described above. ACT 112: Negative or not required by law. Electronically signed by: Wilfredo Barrientos M.D. 08/08/2021 1:38 PM
[2021-08-08] MEDS: fentaNYL citrate 100 MCG/2 ML VIAL IV PRN ×3 (13:40→13:54)
--- NOTE | 2021-08-08 13:58 | Anesthesiology Progress Note ---
Date of Service August 08, 2021 Anesthesia Post Procedure Vital Signs Vital Signs: Temp Pulse Pulse Resp BP Pulse Ox 08/08/21 13:50 51 L 13 121/66 98 08/08/21 13:40 60 18 102/64 100 08/08/21 13:34 36.6 C 58 L 18 99/58 L 99 08/08/21 09:10 36.5 C 83 20 149/69 H 98 Pain Intensity Back: Pain Intensity: 3 Transfer of Care Handoff Completed per policy Notes Mental Status: alert / awake / arousable Patient Amnestic to Procedure: Yes Nausea / Vomiting: adequately controlled Pain: adequately controlled Airway Patency, RR, SpO2: stable & adequate BP & HR: stable & adequate Hydration State: stable & adequate Anesthetic Complications: no major complications apparent and Pt Satisfied with anesthetic care
[2021-08-08] MEDS ORDERED: oxyCODONE HCL IR 5 MG TAB (IMMEDIATE RELEASE) PO PRN (14:28)
[2021-08-08] MEDS ORDERED: SOD PHOSPHATE/SOD BIPHOSPHATE ENEMA 132 ML BTL PR PRN (14:28)
[2021-08-08] MEDS ORDERED: SODIUM CHLORIDE 0.9% 1000ML 1,000 ML IV SCH (14:28)
[2021-08-08] MEDS ORDERED: LORazepam 0.5 MG/1 ML VIAL IV PRN (14:28)
[2021-08-08] MEDS ORDERED: LORazepam 0.5 MG TAB PO PRN (14:28)
[2021-08-08] MEDS ORDERED: ACETAMINOPHEN 500 MG TAB PO PRN (14:28)
[2021-08-08] MEDS ORDERED: bisacodyL 10 MG SUPP PR PRN (14:28)
[2021-08-08] MEDS ORDERED: hydrOXYzine HCl 25 MG TAB PO PRN (14:28)
[2021-08-08] MEDS ORDERED: DO NOT ADMINISTER FLU VACCINE PRN (14:28)
[2021-08-08] MEDS ORDERED: ALUMINUM/MAGNESIUM SUSP 30 ML UDC PO PRN (14:28)
[2021-08-08] MEDS ORDERED: ACETAMINOPHEN 1,000 MG/100 ML VIAL IV PRN (14:28)
[2021-08-08] MEDS ORDERED: DO NOT ADMINISTER PNEUMOCOCCAL VACCINE PRN (14:28)
[2021-08-08] MEDS ORDERED: PROMETHAZINE HCL 12.5 MG in SODIUM CHLORIDE 0.9% 50 ML IV PRN (14:28)
[2021-08-08] MEDS ORDERED: HYDROmorphone INJ 0.5 MG/0.5 ML SYR IV PRN (14:28)
[2021-08-08] MEDS ORDERED: diphenhydrAMINE Capsule 25 MG CAP PO PRN (14:28)
[2021-08-08] MEDS ORDERED: ONDANSETRON 4 MG OD TAB PO PRN (14:28)
[2021-08-08] MEDS ORDERED: MAGNESIUM HYDROXIDE SUSP 30 ML UDC PO PRN (14:28)
[2021-08-08] MEDS ORDERED: METOCLOPRAMIDE HCL INJ 5 MG/ML 2 ML VIAL IV PRN (14:28)
[2021-08-08] MEDS ORDERED: NALOXONE HCL 0.4 MG/1 ML VIAL/CARP IV PRN (14:28)
[2021-08-08] MEDS ORDERED: FAMOTIDINE 20 MG TAB PO PRN (14:28)
[2021-08-08] MEDS: ceFAZolin 2000MG 2,000 MG/15 ML SYR IV SCH (19:41)
[2021-08-08] MEDS: traMADol HCL 50 MG TABLET PO PRN (21:05)
[2021-08-08] MEDS: DOCUSATE SODIUM/SENNA 50/8.6MG TAB PO SCH (21:05)
[2021-08-09] MEDS: ceFAZolin 2000MG 2,000 MG/15 ML SYR IV SCH (03:54)
[2021-08-09 07:55] LABS: Hematocrit (blood only) 35.4 % (37-47); Hemoglobin 11.9 g/dL (12.0-16.0); Immature Granulocytes # (auto) 0.02 K/uL (0.00-0.02); Immature Granulocytes % (auto) 0.2 %; Lymphocytes % (auto) 8.5 %; Mean Corpuscular Hemoglobin 28.7 pg (25-34); Mean Corpuscular Hgb Conc 33.6 g/dL (32-36); Mean Corpuscular Volume 85.5 fL (80-100); Mean Platelet Volume 8.9 fL (7.4-10.4); Monocytes # (auto) 0.77 K/uL (0.11-0.59); Monocytes % (auto) 6.6 %; Neutrophils # (auto) 9.95 K/uL (1.4-6.5); Neutrophils % (auto) 84.7 %; Platelet Count 217 K/uL (130-400); RDW Coefficient of Variation 13.5 % (11.5-14.5); RDW Standard Deviation 42.2 fL (36.4-46.3); Red Blood Count 4.14 M/uL (4.2-5.4); White Blood Count 11.74 K/uL (4.8-10.8)
[2021-08-09] MEDS: MULTIVITAMIN TAB PO SCH (07:58)
[2021-08-09] MEDS: CALCIUM CARBONATE 1250MG TAB PO SCH (07:58)
[2021-08-09] MEDS: LORATADINE 10 MG TAB PO SCH (07:58)
[2021-08-09] MEDS: POLYETHYLENE (MIRALAX) 17 GM PACK PO SCH ×3 (07:58→20:20)
[2021-08-09] MEDS: ANASTROZOLE 1 MG TAB PO SCH (07:58)
[2021-08-09] MEDS: traMADol HCL 50 MG TABLET PO PRN ×2 (08:03→20:24)
[2021-08-09 08:07] LABS: Calcium 8.6 mg/dl (8.5-10.1); Creatinine Clr Calc Pharmacy 70.2 ml/min; Est GFR (African American) 82.9 ml/min; Est GFR (Non-African American) 71.5 ml/min; Potassium 4.6 mmol/L (3.5-5.1)
--- NOTE | 2021-08-09 08:52 | Orthopedic Progress Note ---
Date of Service August 09, 2021 Assessment & Plan (1) Lumbar stenosis with neurogenic claudication: Plan: At this point would like to begin physical therapy transfer to chair as tolerated. Will assess her progress with next day or so and hopefully discharge home. Admission and Anticipated Discharge Date Admission Date: August 08, 2021 Subjective Patient's back pain is controlled leg pain improved Physical Exam Physical Exam: Patient appears comfortable is good strength testing. Results & Data ([facility]) Vital Signs (Past 12 Hours) Vital Signs Temp Pulse Resp BP Pulse Ox 08/09/21 05:40 36.7 C 80 16 133/64 98
[2021-08-09] MEDS ORDERED: NON-FORMULARY MEDICATION (Cranberry 500 mg Capsule) PO SCH (09:00)
[2021-08-09] MEDS: dexAMETHasone 6 MG in SYRINGE 0 ML IV SCH (09:51)
--- NOTE | 2021-08-09 10:18 | Hospitalist Consultation ---
Date of Consultation August 09, 2021 Assessment & Plan (1) Lumbar stenosis with neurogenic claudication: POD #1 and doing well - Pain management, PT/OT per primary service - Encourage OOB/ambulation as tolerated (2) History of atrial fibrillation: Pt on chronic anticoagulation with Xarelto - outpatient provider recommended resuming two days post-op if okay with surgeon. No signs of acute bleeding at present. Continue to monitor. (3) Hx of breast cancer: - Continue Arimidex Pt seen and examined with collaborating physician, Dr. Coleman. Plan of care discussed and as outlined above. Thank you for this consultation. [facility] via [employer]. Please don't hestitate to reach out with questions or concerns. Tiffanie Hoffman PA-C Supervising Physician Co-Signing Physician Notes Attending Addendum: delayed entry date of service noted above care coordinated with OZZY Coker please refer to her notes for full details, I agree with her notes patient seen and examined, records reviewed by myself as well on exam, patient seen resting in bed, comfortable doing puzzles no chest pain, dyspnea, palpitations, dizziness no other symptoms VS noted and reviewed oriented x 3 , not in distress, speaks in sentences with no effort nor accessory muscle use normal rate, regular rhythm, no murmurs clear breath sounds bilaterally non distended, soft, nontender no bipedal edema, erythema, warmth no neuro deficits WBC 11 Hg 11 Crea 0.8 ASSESSMENT AND PLAN s/p Lumbar Spine Sx stable overall History of A fib HR regular, rate controlled resume Eliquis when ok with Dr. Lee other diagnoses and plan of care as per OZZY Coleman MD History of Present Illness Reason for Consultation: Post-operative medical management Requesting Physician: Reid Lee DO Attending Physician: Reid Lee DO History of Present Illness This is a 75 y/o female with a PMH of atrial fibrillation s/p ablation but on chronic AC (Xarelto), hx breast CA s/p lumpectomy/XRT, osteopenia, arthritis, and degenerative disc disease who underwent a lumbar decompression and fusion yesterday. She is seen in [facility] on POD #1 and reports feeling well and hopes to be discharged tomorrow. She reports that her back and leg pain have dramatically improved post-operatively, and she has already been walking with assistance around the [facility]. She denies chest pain, palpitations, SOB, N/V, MARCH, dizziness. She does have a Balderrama in place but hopes to have this removed JUAN MANUEL. She is passing flatus. She tolerated breakfast without issue. Allergies Allergy/AdvReac Type Severity Reaction Status Date / Time adhesive Allergy Mild RASH Verified 08/08/21 09:04 No Known Drug Allergies Allergy Unknown NONE Verified 08/08/21 09:04 Home Medications Medication Instructions Recorded Confirmed Type anastrozole 1 mg tablet 1 mg PO QAM 06/30/21 08/08/21 History calcium 600 mg capsule 1,200 mg PO DAILY 06/30/21 08/08/21 History cranberry 500 mg capsule 500 mg PO DAILY 06/30/21 08/08/21 History loratadine 10 mg tablet (Claritin) 10 mg PO DAILY 06/30/21 08/08/21 History multivitamin 1 tab PO DAILY 06/30/21 08/08/21 History omega-3 fatty acids 1,000 mg PO DAILY 06/30/21 08/08/21 History rivaroxaban 20 mg tablet (Xarelto) 20 mg PO QAM 06/30/21 08/08/21 History oxycodone 5 mg tablet 5 mg PO Q6H PRN #30 tab 08/09/21 Rx tramadol 50 mg tablet 50 mg PO Q6H PRN #30 tab 08/09/21 Rx Patient History Medical History (Updated 08/09/21 @ 10:26 by Shelby Hoffman PA-C) Arthritis Degenerative disc disease History of atrial fibrillation S/p ablation On Xarelto - stable Follows only with PCP Hx of breast cancer RT (S/P LUMPECTOMY WITH RADIATION) 2019 Does have right UE arm restriction Obesity Surgical History (Updated 07/04/21 @ 14:26 by Lore Vick PA-C) H/O cardiac radiofrequency ablation ? 10 YEARS AGO FOR A-FIB ([facility])>NO CARDS>REASON FOR XARELTO History of appendectomy History of cholecystectomy History of colonoscopy History of hysterectomy History of lumbar surgery History of tooth extraction History of total knee replacement RT/LEFT Hx of lumpectomy RT Liver mass REMOVED "BLOOD FILLED/BENIGN"- PRESUMED HEMANGIOMA Family History Other No family history of adverse response to anesthesia Social History Smoking Status: Never smoker Second Hand Exposure: Yes (IN THE PAST); Hx Alcohol Use: Yes Alcohol type: wine Preferred Language: Libyan Communication Ability: Effective Distribution Superintendent Required: No Beliefs That Will Affect Care: None Current Living Situation: Spouse Feels Safe at Home: Yes Safety Concerns: Feels Safe At This Time Assistive Devices: None Review of Systems Review of Systems: All systems reviewed & are unremarkable except as noted in HPI & below Constitutional: no fever, no chills and no sweats Ear, Nose, Mouth, Throat: no nasal congestion, no nasal discharge and no sinus pain/pressure Respiratory: no cough, no dyspnea and no wheezing Cardiovascular: no chest pain, no palpitations, no syncope and no edema Gastrointestinal: no abdominal pain, no nausea, no vomiting and no diarrhea/loose stools Genitourinary: no dysuria, no urinary frequency and no hematuria Musculoskeletal: as per Subjective / HPI Integumentary: no rash and no yellowing of the skin Neurologic: no falls, no generalized weakness and no headache(s) Psychiatric: no depression and no anxiety Physical Exam Constitutional: well developed and well nourished; no acute distress Eyes: + anicteric sclerae Neck: trachea midline Respiratory: no respiratory distress and no labored breathing Auscultation: lungs clear to auscultation bilaterally; no rales, no rhonchi and no wheezes Cardiovascular: Rate/Rhythm: regular rate and regular rhythm Heart Sounds: no murmur Vessels: radial pulses present Gastrointestinal (Abdomen): Inspection/Auscultation: normal bowel sounds; abdomen not distended Percussion/Palpation: abdomen soft; abdomen nontender Musculoskeletal: Head/Neck/Chest: normocephalic, head atraumatic and neck supple Skin: no rashes and no jaundice Neurologic: moves all extremities; no focal motor deficits Psychiatric: A+Ox3, euthymic affect Results & Data Results & Data ([facility]) Vital Signs (Past 12 Hours) Vital Signs Temp Pulse Resp BP Pulse Ox 08/09/21 05:40 36.7 C 80 16 133/64 98 Laboratory Results Laboratory Results - last 24 hr 08/08/21 08/09/21 08/09/21 09:36 07:26 07:26 WBC 11.74 H RBC 4.14 L Hgb 11.9 L Hct 35.4 L MCV 85.5 MCH 28.7 MCHC 33.6 RDW Std Deviation 42.2 RDW Coeff of Sheeba 13.5 Plt Count 217 MPV 8.9 Immature Gran % (Auto) 0.2 Neut % (Auto) 84.7 Lymph % (Auto) 8.5 [place] % (Auto) 6.6 Eos % (Auto) 0.0 Baso % (Auto) 0.0 Neut # (Auto) 9.95 H Lymph # (Auto) 1.00 L [place] # (Auto) 0.77 H Eos # (Auto) 0.00 Baso # (Auto) 0.00 Immature Gran # (Auto) 0.02 Sodium 140 Potassium 4.6 Chloride 109 H Carbon Dioxide 24 Anion Gap 8.0 BUN 13 Creatinine 0.81 Est Cr Clr Drug Dosing 70.2 Est GFR ( Amer) 82.9 Est GFR (Non-Af Amer) 71.5 BUN/Creatinine Ratio 16.0 Glucose 115 H Calcium 8.6 Blood Type A Negative Antibody Screen NEGATIVE Medications Administered Anastrozole (Anastrozole 1 Mg Tab) 1 mg PO QAM SAGE Stop: 09/08/21 08:59 Last Admin: 08/09/21 07:58 Dose: 1 mg Documented by: [id number] Cosigned by: [id number] Calcium Carbonate (Calcium Carbonate 1250mg Tab) 2,500 mg PO DAILY SAGE Stop: 09/08/21 08:59 Last Admin: 08/09/21 07:58 Dose: 2,500 mg Documented by: [id number] Dexamethasone 6 mg/ Syringe 1.5 mls @ 1 mls/min IV DAILY SAGE Stop: 08/11/21 09:02 Last Admin: 08/09/21 09:51 Dose: 1 mls/min Documented by: [id number] Loratadine (Loratadine 10 Mg Tab) 10 mg PO DAILY SAGE Stop: 09/08/21 08:59 Last Admin: 08/09/21 07:58 Dose: 10 mg Documented by: [id number] Multivitamins (Multivitamin Tab) 1 tab PO DAILY SAGE Stop: 09/08/21 08:59 Last Admin: 08/09/21 07:58 Dose: 1 tab Documented by: [id number] Polyethylene Glycol (Polyethylene (Miralax) 17 Gm Pack) 17 gm PO Q6 SAGE Stop: 09/08/21 05:59 Last Admin: 08/09/21 07:58 Dose: Not Given Documented by: [id number] Senna/Docusate Sodium (Docusate Sodium/Senna 50/8.6mg Tab) 2 tab PO HS SAGE Stop: 09/07/21 20:59 Last Admin: 08/08/21 21:05 Dose: 2 tab Documented by: [id number] Tramadol HCl (Tramadol Hcl 50 Mg Tablet) 50 - 100 mg PO Q4H PRN PRN Reason: Moderate-Severe pain & Pre PT Stop: 09/07/21 14:27 Last Admin: 08/09/21 08:03 Dose: 50 mg Documented by: [id number] Admin: 08/08/21 21:05 Dose: 50 mg Documented by: [id number] Discontinued Medications Acetaminophen (Acetaminophen 500 Mg Tab) 1,000 mg PO PREOP SAGE Stop: 08/08/21 18:00 Last Admin: 08/08/21 09:29 Dose: 1,000 mg Documented by: [id number] Bupivacaine HCl (Bupivacaine 0.5 % 5 Mg/1 Ml Mpf 30ml Vial) Confirm Administered Dose 30 ml .ROUTE .STK-MED ONE Stop: 08/08/21 10:57 Last Admin: 08/08/21 12:04 Dose: 30 ml Documented by: [id number] Cefazolin Sodium (Cefazolin 250 Mg/Ml 1 Gm Vial) Confirm Administered Dose 1,000 mg .ROUTE .STK-MED ONE Stop: 08/08/21 10:56 Last Admin: 08/08/21 12:03 Dose: 1,000 mg Documented by: [id number] Celecoxib (Celebrex 200 Mg Cap) 200 mg PO PREOP SAGE Stop: 08/08/21 18:00 Last Admin: 08/08/21 09:29 Dose: 200 mg Documented by: [id number] Epinephrine HCl (Epinephrine Inj 1 Mg/Ml Amp) Confirm Administered Dose 1 mg .ROUTE .STK-MED ONE Stop: 08/08/21 10:57 Last Admin: 08/08/21 13:11 Dose: 1 mg Documented by: [id number] Fentanyl Citrate (Fentanyl Citrate 100 Mcg/2 Ml Vial) 25 mcg IV Q5M PRN PRN Reason: PACU Use Only-Pain Stop: 08/08/21 17:51 Last Admin: 08/08/21 13:54 Dose: 25 mcg Documented by: [id number] Admin: 08/08/21 13:46 Dose: 25 mcg Documented by: [id number] Admin: 08/08/21 13:40 Dose: 25 mcg Documented by: [id number] Gabapentin (Gabapentin 300 Mg Cap) 300 mg PO PREOP SAGE Stop: 08/08/21 18:00 Last Admin: 08/08/21 09:30 Dose: 300 mg Documented by: [id number] Lactated Ringer's (Lr) 1,000 mls @ 15 mls/hr IV .Q24H SAGE Stop: 08/09/21 05:59 Last Infusion: 08/08/21 11:10 Dose: 0 mls/hr Documented by: [id number] Admin: 08/08/21 09:10 Dose: 15 mls/hr Documented by: [id number] Cefazolin Sodium (Ancef 2000mg) 2,000 mg in 15 mls @ 3.75 mls/min IV PREOP SAGE; Protocol Stop: 08/08/21 18:00 Last Admin: 08/08/21 11:11 Dose: 3.75 mls/min Documented by: [id number] Cefazolin Sodium (Ancef 2000mg) 2,000 mg in 15 mls @ 3.75 mls/min IV Q8H ASGE; Protocol Stop: 08/09/21 04:03 Last Admin: 08/09/21 03:54 Dose: 3.75 mls/min Documented by: [id number] Admin: 08/08/21 19:41 Dose: 3.75 mls/min Documented by: [id number] Sodium Chloride (Nss 1000ml) 1,000 mls @ 100 mls/hr IV .Q10H SAGE Stop: 09/07/21 14:27 Last Infusion: 08/08/21 22:34 Dose: 0 mls/hr Documented by: [id number] Admin: 08/08/21 14:44 Dose: 100 mls/hr Documented by: [id number] Miscellaneous ( Floseal Hemostatic Matrix 10ml) 10 ml TOP ONCE ONE Stop: 08/08/21 13:17 Last Admin: 08/08/21 13:19 Dose: 24 ml Documented by: [id number]
[2021-08-09] MEDS: DOCUSATE SODIUM/SENNA 50/8.6MG TAB PO SCH (20:24)
[2021-08-10] MEDS: POLYETHYLENE (MIRALAX) 17 GM PACK PO SCH ×2 (00:12→05:37)
[2021-08-10] MEDS: traMADol HCL 50 MG TABLET PO PRN ×2 (05:34→12:36)
[2021-08-10 08:06] VITALS: BP 130/71; TEMP 97.7; O2SAT 99
[2021-08-10] MEDS: MULTIVITAMIN TAB PO SCH (08:49)
[2021-08-10] MEDS: LORATADINE 10 MG TAB PO SCH (08:49)
[2021-08-10] MEDS: ANASTROZOLE 1 MG TAB PO SCH (08:49)
[2021-08-10] MEDS: CALCIUM CARBONATE 1250MG TAB PO SCH (08:50)
[2021-08-10] MEDS: dexAMETHasone 6 MG in SYRINGE 0 ML IV SCH (08:56)
--- NOTE | 2021-08-10 12:20 | Discharge Summary ---
Date of Service August 10, 2021 Admission HPI Per Admitting Provider This is a 75 old female who presents with current persistent back and leg pain. Failing course of nonoperative care she is here for surgical invention. Admission Exam (Per Admitting) Constitutional well developed and healthy appearing Eyes normal visual mars by confrontation ENMT external ear and nose normal, oropharynx normal Neck normal visual inspection Respiratory normal respiratory effort Cardiovascular Extremities: normal capillary refill Gastrointestinal (Abdomen) Inspection/Auscultation: abdomen normal to inspection Musculoskeletal no cyanosis or clubbing, extremities motor strength 5/5 Skin no rashes, warm and dry Neurologic normal touch/pain/proprioception and moves all extremities Psychiatric Orientation: alert, oriented x 3 and cooperative Discharge Data Consultations 08/08/21 14:28 Consult Hospitalist Routine Procedures Performed Operation Date: 07/18/21 11:35 <No data on this case meets the specified criteria> Operation Date: 08/08/21 10:35 Actual Procedures p L2-L4 Decompression, L2-L5 Fusion, Spinal Cord Monitoring, Application of Bone Morphogenetic Protein, Placement of Interbody at L3-L4(Not Applicable) - Reid Lee DO s L4-L5 Hardware Removal, (Not Applicable) - Reid Lee DO Hospital Course (1) Lumbar stenosis with neurogenic claudication: Pt had an uneventful hospital stay. She is being discharged home on POD #2. Denies leg pain. Back pain is controlled. She's making progress daily in physical therapy. She has had a bowel movement. Lab values stable. Discharge Instructions ACTIVITY RECOMMENDATIONS: SELF CARE INSTRUCTIONS AFTER THORACIC/LUMBAR FUSIONS 1. You may walk to your tolerance. It is good exercise for your legs and back. Expect some back and intermittent leg aches and pains. 2. You may perform "counter-top" level activities (make a sandwich, sheng with a project, etc.). 3. No bending or lifting of more than 10 pounds or back twisting of any nature (roll like a log when turning in bed). 4. You may ride in a car for 20-30 minutes at a time. No driving until after your first visit with your doctor. 5. Frequent changes of position and restricting sitting to 30 minutes at a time will help limit the amount of back spasms and stiffness you may experience. 6. You may discontinue the use of ambulatory aids (cane, crutches, etc.) once your strength and confidence allow. 7. You may resin remover the shower and let water strike your incision when you arrive home at least once daily. Do not take a tub bath, sit in a hot tub or go into a swimming pool until after your first recheck in the office. SPECIAL CARE INSTRUCTIONS: VERY IMPORTANT TO READ AND REVIEW A. Your surgical incision has been closed with a cosmetic suture under the skin that will dissolve in about 6 weeks. In 14 days, you can use a pair of clean scissors and cut the suture that is left outside of the skin at the ends of your incision. 1. The small skin tapes can be removed 7 days after surgery if they have not fallen off by that point. 2. You may keep the wound open to air as much as possible to promote healing after post-op day number 5 unless told otherwise by your doctor. 3. If you think the wound looks like it is becoming infected (redness or worsening drainage) and/or you are experiencing fever, chill or worsening back pain and muscle spasms, contact the office so that we may evaluate you as soon as possible. B. Complications are uncommon, but please contact us if you have any signs or symptoms of: 1. wound infection (fever higher than 102.5 degrees F, redness, separation of wound, drainage, or increasing pain from the incision) 2. blood clots in legs (pain, swelling, redness and warmth in legs) 3. urinary tract infection (fever higher than 102.5 degrees F, burning upon urination or increased frequency of urination) 4. nerve problems (inability to walk on your toes or heels, numbness, loss of bowel or bladder control) 5. any other symptoms that concern you C. Please call the office at if you have any concerns or questions about your operation or recovery. D. No smoking! Smoking drastically decreases the chance of a solid fusion. E. Do not take any anti-inflammatory medications (Indocin, Advil, Motrin, Aspirin, Naprosyn, etc.) as these may inhibit the chance of a solid fusion. Tylenol is okay to take for pain. MANAGING PAIN AFTER SPINAL SURGERY 1. Narcotic medication is intended for short-term use and will be provided for surgical pain. Surgical pain usually lasts for a period of 4-6 weeks. Narcotic medication includes Percocet, Vicodin, Darvocet, Tylenol #3 or Lortab. 2. Longer-term pain is more appropriately treated with non-narcotic medication such as Tylenol ES. 3. Muscle spasm is not appropriately treated with narcotics. Muscle relaxers such as Soma, Flexeril or Skelaxin can be used along with Tylenol ES. 4. Remember that we all live with some "aches and pains". This is not unusual or uncommon after an injury or as we get older. a. Back pain is expected and may include muscle spasms for 4 to 6 weeks after surgery. The pain should gradually improve. If the pain worsens for no apparent reason, please contact the office. b. Intermittent leg pain may also be experienced and should not be concerned about unless it worsens for no apparent reason. If so, please contact the office. 5. We will provide appropriate medication within the normal guidelines of their prescribed use. We will also be very cautious and aware of potential abuse and extended duration of patients' medication needs. a. Pain medications are for your comfort and to assist with sleep and rest so that the tissue can heal. They are not provided in order to return to normal activity and should not be used through the day. To do so or worsening pain at night can result from ongoing tissue damage and development of tolerance to the prescribed medicine. 6. Please allow 2-3 days to process refills. Prescriptions will not be mailed but must be picked up at the office. FOLLOW UP VISIT: Keep your scheduled follow-up appointment. Any questions, please call the office at .
[2021-08-10 12:28] VITALS: PULSE 78
--- NOTE | 2021-08-10 13:34 | Hospitalist Progress Note ---
Date of Service August 10, 2021 Assessment & Plan (1) Lumbar stenosis with neurogenic claudication: Plan: POD #2 -Continue wound care, pain management Needs follow-up with surgery upon discharge Advised to follow-up with PCP in 1 week upon discharge as well. (2) History of atrial fibrillation: Plan: chronic anticoagulation with Xarelto Resume Xarelto (3) Hx of breast cancer: Plan: - Continue Arimidex Plan: DC as per Primary Team Admission and Anticipated Discharge Date Admission Date: August 08, 2021 Subjective Patient is seen and examined at bedside States having back pain at surgical site Denies any chest pain, shortness of breath, dizziness, nausea, abdominal pain Offers no other complaints Review of Systems Review of Systems: All systems reviewed & are unremarkable except as noted in Subjective Physical Exam Physical Exam: Physical Exam: Vitals signs as noted above General Appearance:Obese, no apparent distress Head: normocephalic, Atraumatic Eyes: normal inspection, EOMI Neck: supple, Trachea midline Respiratory/Chest: Normal breath sounds, CTA, No accessory muscle use Cardiovascular: S1, S2, No murmur Abdomen/GI:Soft, Non tender, Bowel sounds present Extremities/Musculoskeletal:normal inspection, no edema Back: Surgical site in dressing Neurologic/Psych:AAOX3, grossly no focal neurological deficits Skin: normal color, warm Results & Data Results & Data ([facility]) Vital Signs (Past 12 Hours) Vital Signs Temp Pulse Pulse Resp BP Pulse Ox 08/10/21 12:24 36.5 C 78 79 16 130/71 99 08/10/21 07:00 36.5 C 79 16 130/71 99
== END 2021-08-10 13:15 | disposition home or self-care (01) ==
LOC: ASU 08:41 → INTOOBSV 13:20 → PACUINP 13:20 → ASUINP 08-10 06:53